=== PATIENT | male | born 1985 | race Two or more races ===

== ENCOUNTER 2023-08-02 12:51 | Emergency (ER) | payer SELFPAY ==
[2023-08-02 13:16] VITALS: BP 122/60; PULSE 68; RESP 20; TEMP 98.7; BMI 26.4
[2023-08-02 13:53] LABS: PH,URINE 5.5 (5.0-8.0); URINE APPEARANCE CLEAR; URINE BILIRUBIN NEGATIVE (NEGATIVE); URINE COLOR YELLOW; URINE GLUCOSE (UA) NEGATIVE (NEGATIVE); URINE KETONE NEGATIVE (NEGATIVE); URINE LEUK ESTERASE NEGATIVE (NEGATIVE); URINE NITRITE NEGATIVE (NEGATIVE); URINE PROTEIN NEGATIVE (NEGATIVE)
[2023-08-02 13:54] LABS: URINE RBC 0-3 /uL (0-23.9); URINE WBC 0-3 /uL (0-25.8)
[2023-08-02] MEDS ORDERED: CEFTRIAXONE 500 MG in DEXTROSE 5%-WATER - 50 ML IM ONE (14:59)
[2023-08-02] MEDS ORDERED: DOXYCYCLINE HYCLATE 100 MG CAPSULE PO ONE ×2 (15:00→15:25)
[2023-08-02] MEDS ORDERED: cefTRIAXone SODIUM 1 GM VIAL ONE (15:29)
== END 2023-08-02 15:44 | disposition home or self-care (01) ==
LOC: JER 12:51
PROC: 3E023GC Introduction of Other Therapeutic Substance into Muscle, Percutaneous Approach (ICD-10-PCS; principal; 2023-08-02)
DX: N48.89 Other specified disorders of penis (principal)
CPT/HCPCS: 36415; 81003; 87491; 87591; 99284-25